=== PATIENT | female | born 1970 | race African-American/Black ===

== ENCOUNTER 2021-01-28 05:37 | Emergency (ER) | payer MEDICAID, OTHER ==
[~2021-01-28] VITALS: Ht 165.1 cm; Wt 91.0 kg
[2021-01-28] MEDS ORDERED: SODIUM CHLORIDE 0.9% 1,000 ML IV ONE (07:15)
[2021-01-28 08:14] LABS: BASOPHILS % 0.7 % (0.0-2.0); EOSINOPHILS % 2.8 % (0.0-5.0); HEMATOCRIT. 34.3 % (36.0-48.0); LYMPHOCYTES % 22.6 % (20.0-50.0); MEAN CORPUSCULAR HEMOGLOBIN 18.4 pg (28.0-32.0); MEAN CORPUSCULAR VOLUME 63.3 fL (81.0-99.0); MEAN PLATELET VOLUME 8.7 fl (7.4-10.4); MONOCYTES % 8.1 % (2.0-8.0); NEUTROPHILS % 65.8 % (40.0-76.0); PLATELET 422 x1000/uL (130-400); RED BLOOD CELL COUNT 5.42 mill/uL (4.2-5.4); RED CELL DISTRIBUTION WIDTH 21.8 % (11.6-14.6)
[2021-01-28 08:22] LABS: CHLORIDE 109 mEq/L (98-107)
[2021-01-28 12:18] LABS: PLATELET ESTIMATE SLIGHTLY INCREASED
[2021-01-28 12:21] VITALS: BP 130/61
== END 2021-01-28 12:30 | disposition home or self-care (01) ==
LOC: ER 05:37
DX: R53.1 Weakness (principal); D50.9 Iron deficiency anemia, unspecified; I25.10 Atherosclerotic heart disease of native coronary artery without angina pectoris; I10 Essential (primary) hypertension; F17.210 Nicotine dependence, cigarettes, uncomplicated
CPT/HCPCS: 36415; 71045; 80053; 82962; 84443; 84484; 85025; 93005; 96360; 96361; 99285; J7030